=== PATIENT | female | born 1960 | race Caucasian/White ===

== ENCOUNTER 2023-09-15 14:21 | Outpatient (CLI) | payer MEDICAID | END 2023-09-15 23:59 | disposition home or self-care (01) | LOC: CARD DIAG 14:21 | PROVIDERS: ATTEND Family Medicine | DX: I08.0 Rheumatic disorders of both mitral and aortic valves (principal); R07.9 Chest pain, unspecified; I50.9 Heart failure, unspecified | CPT/HCPCS: 93306 ==